=== PATIENT | female | born 1940 | race Caucasian/White ===

== ENCOUNTER 2018-03-23 16:05 | Emergency (ER) | payer MEDICARE, OTHER ==
[~2018-03-23] VITALS: Ht 167.6 cm; Wt 78.9 kg
--- NOTE | 2018-03-23 17:10 | NUR ---
Recieved patient in ed bed 17. Pt is here because she had a high BP at home. 169/114 in the triage assessment. Pt sts that her doctor said she needs a ct of head. Placed on cont cardiac monitoring. Pt denies CP/SOB. neuro intact. will cont to monitor
--- NOTE | 2018-03-23 17:17 | NUR ---
pt strongly refuse to get a blood test, she sts that she had a blood test 3 days ago and she does not want any blood tests right now. she only wants to get a ct scan of her head. Dr Thakkar notified
--- NOTE | 2018-03-23 18:01 | NUR ---
pt back from ct scan
[2018-03-23 18:41] VITALS: BP 142/92
== END 2018-03-23 18:44 | disposition home or self-care (01) ==
LOC: ER 16:06
DX: I10 Essential (primary) hypertension (principal); R51 Headache
CPT/HCPCS: 70450; 99284; A4606; Z7610

== ENCOUNTER 2018-09-15 10:15 | Emergency (ER) | payer MEDICARE, MEDICAID ==
[~2018-09-15] VITALS: Ht 167.6 cm; Wt 72.6 kg
--- NOTE | 2018-09-15 10:30 | NUR ---
oziel 860 from home c/o lower back pain s/p slipped and fell today, -ko, alert and oriented x 4, verbally responsive and able to make needs known. connected to the monitor and pulse ox. on room air, breathing evenly and unlabored. Dr. Barbosa at bedside for eval. Kept comfortable, will continue to monitor accordingly.
--- NOTE | 2018-09-15 10:52 | NUR ---
wheeled patient via gurney going for ct scan
[2018-09-15] MEDS ORDERED: HYDROCODONE/APAP 5/325MG 1 EACH TABLET PO ONE (11:00)
[2018-09-15] MEDS ORDERED: HYDROCODONE/APAP 5/325MG 1 EACH TABLET ONE (11:01)
--- NOTE | 2018-09-15 11:16 | NUR ---
patient came back from ct
--- NOTE | 2018-09-15 12:39 | NUR ---
CALLED [facility] FOR TRANSPORT ETA OF 1400 WAS GIVEN. TRIP#[id number]
[2018-09-15 14:21] VITALS: BP 129/68
--- NOTE | 2018-09-15 14:22 | NUR ---
Patient discharged to home in stable condition via ambulance accompanied by 2 emt's and son and daughter. Written and verbal after care instructions given. Patient verbalizes understanding of instruction.IV removed. Catheter intact and site benign. Pressure and 4x4 applied to site. No bleeding noted.
== END 2018-09-15 14:22 | disposition home or self-care (01) ==
LOC: ER 10:25
DX: S93.492A Sprain of other ligament of left ankle, initial encounter (principal); M54.5 Low back pain; R41.82 Altered mental status, unspecified; I10 Essential (primary) hypertension; F32.9 Major depressive disorder, single episode, unspecified; Z88.0 Allergy status to penicillin; W01.0XXA Fall on same level from slipping, tripping and stumbling without subsequent striking against object, initial encounter; Y93.89 Activity, other specified; Y92.89 Other specified places as the place of occurrence of the external cause; Y99.8 Other external cause status
CPT/HCPCS: 70450; 72100; 72170; 73110; 73610; 99284; A4606

== ENCOUNTER 2025-02-12 22:40 | Emergency (ER) | payer MEDICARE, OTHER ==
[~2025-02-12] VITALS: Ht 162.6 cm; Wt 59.0 kg
[2025-02-13 00:56] LABS: BASOPHILS % (AUTO) 0.4 % (0.0-2.0); EOSINOPHILS % (AUTO) 0.8 % (0.0-6.0); HEMATOCRIT 35 % (33-45); LYMPHOCYTES # (AUTO) 0.9 K/uL (0.8-4.8); LYMPHOCYTES % (AUTO) 22.4 % (20.0-44.0); MEAN CORPUSCULAR HEMOGLOBIN 30 PG (26.0-33.0); MEAN CORPUSCULAR HGB CONC 34 g/dl (31.0-36.0); MEAN CORPUSCULAR VOLUME 86 fL (82-100); MONOCYTES # (AUTO) 0.6 K/uL (0.1-1.30); MONOCYTES % (AUTO) 15.7 % (2.0-12.0); NEUTROPHILS # (AUTO) 2.5 K/uL (1.8-8.9); NEUTROPHILS % (AUTO) 60.7 % (43.0-81.0); PLATELET COUNT (AUTO) 139 K/uL (150-450); RED BLOOD CELL COUNT(AUTO) 4.04 MIL/uL (4.0-5.2); RED CELL DISTRIBUTION WIDTH 16.2 % (11.5-15.0); WHITE BLOOD COUNT (AUTO) 4.1 K/uL (4.3-11.0)
[2025-02-13 01:09] LABS: CALCIUM, SERUM 8.7 mg/dL (8.5-10.1); CARBON DIOXIDE 24 mmol/L (21-32); CHLORIDE 104 mmol/L (98-107); CREATININE 0.7 mg/dL (0.6-1.3); GLUCOSE 108 mg/dL (74-106); POTASSIUM 4.1 mmol/L (3.5-5.1); SODIUM SERUM 140 mmol/L (136-145); UREA NITROGEN, BLOOD 14 mg/dL (7-18)
[2025-02-13 01:20] LABS: ALANINE AMINOTRANSFERASE 12 U/L (12-78); ALBUMIN 4.4 g/dL (3.4-5.0); ALKALINE PHOSPHATASE 78 U/L (46-116); ASPARTATE AMINOTRANSFERASE 19 U/L (15-37); BILIRUBIN,DIRECT 0.1 mg/dL (0.0-0.2); BILIRUBIN,TOTAL 0.6 mg/dL (0.2-1.0); NT-PRO BNP 543 pg/mL (0-125); TOTAL PROTEIN, SERUM 6.8 g/dL (6.4-8.2)
[2025-02-13] MEDS ORDERED: ACETAMINOPHEN 325 MG TABLET ONE (01:26)
[2025-02-13] MEDS: VALACYCLOVIR HCL 500 MG TABLET ONE (01:36)
[2025-02-13] MEDS: VALACYCLOVIR HCL 500 MG TABLET PO ONE (01:36)
[2025-02-13] MEDS: ACETAMINOPHEN 325 MG TABLET PO ONE (01:36)
[2025-02-13] MEDS ORDERED: VALA10002 PO (02:51)
[2025-02-13] MEDS: hydrALAZINE HCL IV 20 MG VIAL IV ONE (02:57)
[2025-02-13] MEDS ORDERED: hydrALAZINE HCL IV 20 MG VIAL ONE (02:58)
[2025-02-13 03:40] VITALS: BP 143/71; TEMP 97.6; O2SAT 98
[2025-02-13 04:12] LABS: LYMPHOCYTES % (MANUAL) 19 % (16-48); MONOCYTES % (MANUAL) 10 % (0-11.0); NEUTROPHILS % (MANUAL) 71 (42-76); PLATELET ESTIMATE ADEQUATE
== END 2025-02-13 03:41 | disposition home or self-care (01) ==
LOC: ER 22:46
DX: R21 Rash and other nonspecific skin eruption (principal); R07.89 Other chest pain; E78.5 Hyperlipidemia, unspecified; F32.A Depression, unspecified; I10 Essential (primary) hypertension; Z88.0 Allergy status to penicillin
CPT/HCPCS: 99285; 93005; 96374; 71045; 85025; 80048; 80076; 36415; 84484 ×2; 83880; J0360